=== PATIENT | male | born 1950 | race Caucasian/White ===

== ENCOUNTER 2019-02-27 09:57 | Inpatient (IN) | payer OTHER ==
[~2019-02-27] VITALS: Ht 182.9 cm; Wt 86.7 kg
--- NOTE | 2019-02-27 09:57 | NUR ---
ER Dr. GUIDRY at [facility] examining patient.
--- NOTE | 2019-02-27 10:00 | NUR ---
Patient to ER bed 01 to gown for evaluation. Side rails up.
--- NOTE | 2019-02-27 10:00 | NUR ---
patient arrived AOx4 from work with c/o diaphoresis and generalize weakness. patient states in broken kinyarwanda that he doesn't have any medical history and is followed by a primary care for normal wellness care. patient denies SOB, chest pain or any other complaint. no other complaint or injury at this time.
--- NOTE | 2019-02-27 10:00 | NUR ---
# 18 gauge angiocath placed to left forearm. Use of asceptic technique. Opsite placed over site. Blood return noted. Blood for lab drawn from site. Flushed with 10 cc of normal saline. No evidence of infiltration noted. Patient tolerated well.
[2019-02-27 10:06] VITALS: BP_SYST 152
[2019-02-27] MEDS ORDERED: NS 500 ML IV ONE (10:15)
[2019-02-27] MEDS ORDERED: INSULIN REGULAR, HUMAN 10 UNITS/0.1 ML INJ IVP ONE (10:15)
--- NOTE | 2019-02-27 10:20 | NUR ---
PATIENT LEFT TO RADIOLOGY VIA GURNEY. NO SIGNS OF DISTRESS NOTED.
[2019-02-27 10:33] LABS: BASOPHILS # (AUTO) 0.1 K/uL (0.0-0.2); EOSINOPHILS # (AUTO) 0.2 K/uL (0.0-0.4); EOSINOPHILS % (AUTO) 2.9 % (0.0-4.0); HEMATOCRIT 44.8 % (36-54); HEMOGLOBIN 14.8 g/dL (14.0-18.0); LYMPHOCYTES % (AUTO) 30.2 % (20.5-51.5); MEAN CORPUSCULAR HEMOGLOBIN 30 pg (27-31); MEAN CORPUSCULAR HGB CONC 33 % (32-36); MEAN CORPUSCULAR VOLUME 89 fL (79.0-98.0); MONOCYTES # (AUTO) 0.4 K/uL (0.0-1.0); MONOCYTES % (AUTO) 6.6 % (1.7-9.3); NEUTROPHILS # (AUTO) 3.9 K/uL (1.8-7.7); NEUTROPHILS % (AUTO) 59.3 % (40.0-70.0); PLATELET COUNT (AUTO) 220 K/uL (130-430); RED BLOOD CELL COUNT(AUTO) 5.03 MIL/uL (4.2-6.2); RED CELL DISTRIBUTION WIDTH 13.6 % (9.0-15.0); WHITE BLOOD COUNT (AUTO) 6.6 K/uL (4.8-10.8)
[2019-02-27 10:43] LABS: PROTHROMBIN TIME 9.9 SECS (9.5-12.5)
[2019-02-27 10:50] LABS: ALBUMIN 3.6 g/dL (3.4-4.8); CALCIUM 9.5 mg/dL (8.4-11.0); CREATININE 1.33 mg/dL (0.55-1.30); POTASSIUM 3.9 mmol/L (3.5-5.1); TOTAL BILIRUBIN 0.4 mg/dL (0.0-1.0)
[2019-02-27 13:16] LABS: BILIRUBIN,URINE NEGATIVE (NEGATIVE); BLOOD, URINE NEGATIVE (NEGATIVE); CLARITY/URINE CLEAR (CLEAR); COLOR,URINE YELLOW (YELLOW); GLUCOSE,URINE 3+ (NEGATIVE); KETONES,URINE NEGATIVE (NEGATIVE); LEUKOCYTE ESTERASE ,URINE NEGATIVE (NEGATIVE); NITRITE, URINE NEGATIVE (NEGATIVE); PH,URINE 5.5 (5.0-8.0); PROTEIN URINE NEGATIVE (NEGATIVE); UROBILINOGEN,URINE 0.2 (0.2-1.0)
--- NOTE | 2019-02-27 13:20 | NUR ---
MADE AWARE OF PATIENT'S BLOOD SUGAR
[2019-02-27 13:34] LABS: BACTERIA,URINE None Seen /HPF (None Seen); RBC,URINE 0-3 /HPF (0-3); WBC,URINE NONE SEEN /HPF (0-3)
--- NOTE | 2019-02-27 14:48 | NUR ---
Patient will be admitted to care of MD Wilian. Admitted to Telemetry unit. Will go to room 107-A. Belongings list completed. Summary report printed. Report will be given at bedside.
--- NOTE | 2019-02-27 14:58 | NUR ---
ADMIT NOTE Received pt from ER to the floor with a diagnosis of syncopal episode. Admission process initiated. patient oriented to pain management, safety and call light-teach back done.
[2019-02-27 15:05] VITALS: BP_SYST 159
--- NOTE | 2019-02-27 15:06 | NUR ---
CONSULTATION PAGED REASON FOR CONSULTATION:SYNCOPE WAS CONSULT CALLED?Y PERSON WHO WAS NOTIFIED:ROSI CONSULTING PHYSICIAN:DANNIELLE ROTHMAN ( PILE DRIVING SUPERVISOR) TELEVISION ACTOR SPECIALTY:NEURO TELEVISION ACTOR PHONE NUMBER:[phone] ORDERING PHYSICIAN:HIPOLITO MONTE
--- NOTE | 2019-02-27 15:15 | NUR ---
RN Note Patient was bib BLS for feeling weak at work. Patient report sitting down and then falling asleep. Does not report any medical conditions. Alert and oriented x 4. Mongolian speaking only. VSS: 98.1, 159/88, 60, 97%ra, 18. Currently running NS @ 80 on left hand 18g IV. Call light is within reach and bed is in low position. Will continue to monitor.
--- NOTE | 2019-02-27 15:28 | NUR ---
CONSULT CARDIOLOGY SYNCOPE DR FISHER [phone] S/W [facility] OFFICE
[2019-02-27] MEDS ORDERED: MUPIROCIN 2% TOPICAL OINTMENT 22 GM NS PRN (15:30)
[2019-02-27] MEDS ORDERED: POTASSIUM CHLORIDE 20 MEQ TAB.PRT.SR PO PRN (15:30)
[2019-02-27] MEDS ORDERED: DOCUSATE SODIUM 100 MG CAPSULE PO PRN (15:30)
[2019-02-27] MEDS ORDERED: ZOLPIDEM TARTRATE 5 MG TABLET PO PRN (15:30)
[2019-02-27] MEDS ORDERED: DEXTROSE 50% JECT 50 ML DISP.SYRIN IVP PRN (15:30)
[2019-02-27] MEDS ORDERED: MORPHINE 4 MG/ML INJ. SYRINGE IVP PRN ×2 (15:30)
[2019-02-27] MEDS ORDERED: ACETAMINOPHEN 325 MG TABLET PO PRN (15:30)
[2019-02-27] MEDS ORDERED: MAGNESIUM SULFATE 50 ML IV PRN (15:30)
[2019-02-27] MEDS ORDERED: ONDANSETRON HCL 4 MG/2 ML VIAL IVP PRN (15:30)
[2019-02-27] MEDS ORDERED: LORazepam 2 MG/ML VIAL IVP PRN (15:30)
[2019-02-27] MEDS: NACL 0.9% 1,000 ML IV SCH (16:11)
--- NOTE | 2019-02-27 17:00 | NUR ---
BS Current BS is 263, covered with 6 units of Preethi.
[2019-02-27] MEDS: INSULIN LISPRO SLIDING SCALE 100 UNITS/ML VIAL (humaLOG) SUBCUT PRN ×2 (17:31→21:38)
--- NOTE | 2019-02-27 18:11 | NUR ---
IV insertion Inserted 22g IV on the right hand using aseptic technique. Patient tolerated well.
--- NOTE | 2019-02-27 18:16 | NUR ---
Closing Note patient is currently having a 2d echo done. Patient continues to deny and CP, SOB, or dizziness. No signs of distress noted. Will endorse care to the oncoming nurse.
--- NOTE | 2019-02-27 19:05 | NUR ---
CHANGE OF SHIFT; pt. awake, alert, equatorial guinean speaking. Dr.. Pinzon here at bedside for consult, pt. was just admitted. denies any pain. instructed to call for help and use of call light .
[2019-02-27 20:00] VITALS: BP_SYST 149
--- NOTE | 2019-02-27 20:00 | NUR ---
NOTES: pt. resting, no complaints manifested, discuss plan of care. call light within reach. cardiac pattern on sinus bradycardia borderline sinus rhythm.
[2019-02-27] MEDS: HEPARIN SODIUM,PORCINE 5000 UNITS/ML VIAL SUBCUT SCH (20:48)
[2019-02-27] MEDS ORDERED: INSULIN GLARGINE 100 UNITS/ML 10 ML VIAL SUBCUT SCH (21:00)
--- NOTE | 2019-02-27 21:40 | NUR ---
NOTES: BS checked with sliding scale coverage, hs snack given. IV infusing with NS @ 80 cc/hr
--- NOTE | 2019-02-27 23:04 | NUR ---
NOTES: pt. sleeping already when checked. condition observed.
--- NOTE | 2019-02-28 00:35 | NUR ---
NOTES: been getting up to the restroom. c/o being cold ,warm blankets given.
[2019-02-28 01:20] VITALS: BP_SYST 142
--- NOTE | 2019-02-28 02:10 | NUR ---
NOTES: pt. called, got tangled up on her IV tubing and got twisted. medicated with [place] for c/o left leg pain and cramps and also her lower back which is chronic. pt. needs attended. continue to monitor. Addendum: 02/28/19 at 0223 by Kira Mae RN wrong pt.
--- NOTE | 2019-02-28 02:23 | NUR ---
NOTES: pt. remain sleeping. IVF patent cardiac pattern unchanged. continue to monitor.
[2019-02-28] MEDS: NACL 0.9% 1,000 ML IV SCH ×2 (04:12→16:38)
--- NOTE | 2019-02-28 04:32 | NUR ---
NOTES: IV bag changed, awakened and went back to sleep. continue to monitor.
--- NOTE | 2019-02-28 06:15 | NUR ---
NOTES: still sleeping comfortably. IVF patent and infusing well. lab draw pending this am.
[2019-02-28] MEDS: INSULIN LISPRO SLIDING SCALE 100 UNITS/ML VIAL (humaLOG) SUBCUT PRN ×4 (06:51→21:38)
[2019-02-28 06:52] LABS: CREATININE 0.99 mg/dL (0.55-1.30); THYROID STIMULATING HORMONE 0.91 uIu/mL (0.34-4.82)
--- NOTE | 2019-02-28 06:54 | NUR ---
CLOSING NOTES; pt. awakened, BS checked 226 with sliding scale coverage, no complaints noted. IVF patent. for further care and assistance, will endorse to day shift.
[2019-02-28 07:06] LABS: BASOPHILS # (AUTO) 0.1 K/uL (0.0-0.2); BASOPHILS % (AUTO) 0.7 % (0.0-2.0); EOSINOPHILS # (AUTO) 0.3 K/uL (0.0-0.4); EOSINOPHILS % (AUTO) 4.5 % (0.0-4.0); HEMATOCRIT 42.1 % (36-54); HEMOGLOBIN 14.2 g/dL (14.0-18.0); LYMPHOCYTES # (AUTO) 2.1 K/uL (1.0-5.5); LYMPHOCYTES % (AUTO) 29.2 % (20.5-51.5); MEAN CORPUSCULAR HEMOGLOBIN 30 pg (27-31); MEAN CORPUSCULAR HGB CONC 34 % (32-36); MEAN CORPUSCULAR VOLUME 89 fL (79.0-98.0); MONOCYTES # (AUTO) 0.5 K/uL (0.0-1.0); MONOCYTES % (AUTO) 6.8 % (1.7-9.3); NEUTROPHILS # (AUTO) 4.3 K/uL (1.8-7.7); NEUTROPHILS % (AUTO) 58.8 % (40.0-70.0); PLATELET COUNT (AUTO) 221 K/uL (130-430); RED BLOOD CELL COUNT(AUTO) 4.73 MIL/uL (4.2-6.2); RED CELL DISTRIBUTION WIDTH 13.5 % (9.0-15.0); WHITE BLOOD COUNT (AUTO) 7.3 K/uL (4.8-10.8)
--- NOTE | 2019-02-28 07:35 | NUR ---
OPENING NOTE Patient resting in the bed comfortable. No acute distress. AAO x 4. Denied of pain and dizziness. Skin warm and dry to touch. IV intact to right hand, no redness, no swelling, no drainage. On NS at 80ml/hr, infusing well. Discussed the safety issue, use call light when needs help, and plan of care, verbally understanding. Safety measure maintained. Bed locked in low position, side rails up. Refused bed alarm, risk and benefit explained, verbally understanding. Call light within reached. Will continue to monitor.
[2019-02-28 07:50] VITALS: BP_SYST 156
[2019-02-28] MEDS: HEPARIN SODIUM,PORCINE 5000 UNITS/ML VIAL SUBCUT SCH ×2 (08:16→20:33)
--- NOTE | 2019-02-28 08:44 | NUR ---
SEEN AND EXAMINED BY DR. SALGADO [facility] WITH ORDER.
--- NOTE | 2019-02-28 08:53 | NUR ---
2D ECHO DOING AT BEDSIDE AT THIS TIME.
[2019-02-28] MEDS: LISINOPRIL 10 MG TABLET (PRINIVIL) PO SCH (09:19)
[2019-02-28] MEDS ORDERED: ATORVASTATIN 20 MG TABLET PO ONE (10:15)
--- NOTE | 2019-02-28 11:54 | NUR ---
PZ=068 Humalog insulin 4 units given per sliding scale for OW=404 as ordered. No acut4e distress. Safety measure maintained. Bed locked in low position, side rails up. Call light within reached. Continue to monitor.
[2019-02-28 12:34] VITALS: BP_SYST 139
--- NOTE | 2019-02-28 13:53 | NUR ---
WATCHING TV Patient resting in the bed and watching TV. No acute distress. IV intact, IVF infusing well. Safety measure maintained. Bed locked in low position, side rails up. Call light within reached. Continue to monitor.
--- NOTE | 2019-02-28 15:40 | NUR ---
BATHROOM Ambulated to bathroom in steady gait. Safety measure maintained. Call light within reached. Continue to monitor.
[2019-02-28 16:47] VITALS: BP_SYST 139
[2019-02-28] MEDS: metFORMIN HCL 500 MG TABLET PO SCH (17:34)
--- NOTE | 2019-02-28 17:38 | NUR ---
MS=914 Humalog insulin 2 units given per sliding scale for ZR=475 as ordered. No acut4e distress. Safety measure maintained. Bed locked in low position, side rails up. Call light within reached. Continue to monitor.
--- NOTE | 2019-02-28 18:50 | NUR ---
CLOSING NOTE Patient resting in the bed comfortable. No acute distress. Denied of pain and dizziness. Skin warm and dry to touch. IV intact to right hand, no redness, no swelling, no drainage. On NS at 80ml/hr, infusing well. All needs met. Hourly rounding during shift. Safety measure maintained. Bed locked in low position, side rails up. Refused bed alarm, risk and benefit explained, verbally understanding. Call light within reached. Will endorse to night nurse.
--- NOTE | 2019-02-28 19:20 | NUR ---
CHANGE OF SHIFT; pt. awake, resting, watching tv. denies any discomfort. IVF infusing with NS @ 80 cc/hr. reminded to call nurse for help and use of call light .
[2019-02-28 20:15] VITALS: BP_SYST 150
--- NOTE | 2019-02-28 20:30 | NUR ---
NOTES: IVF patent, moves all extremities. cardiac pattern on sinus bradycardia. no chest pain nor any discomfort. some diabetic teaching regarding diet instructed with pt. and medication., verbalized understanding.
[2019-02-28] MEDS ORDERED: INSULIN GLARGINE 100 UNITS/ML 10 ML VIAL SUBCUT SCH (21:00)
--- NOTE | 2019-02-28 21:00 | NUR ---
NOTES: due meds given. repositioned self for comfort. BS checked 204. sliding scale to be given.
--- NOTE | 2019-02-28 22:00 | NUR ---
NOTES: Insulin schedule and sliding scale given and HS snack.
[2019-03-01 00:07] VITALS: BP_SYST 150
--- NOTE | 2019-03-01 00:30 | NUR ---
NOTES: pt. sleeping when checked, turn to sides by himself. continue to monitor.
--- NOTE | 2019-03-01 03:00 | NUR ---
NOTES: condition unchanged. pt. remain sleeping, no acute distress.
--- NOTE | 2019-03-01 05:30 | NUR ---
NOTES: pt. awakened, IV bag replaced. no complaints manifested.
[2019-03-01] MEDS: NACL 0.9% 1,000 ML IV SCH (05:39)
[2019-03-01 06:41] LABS: BASOPHILS # (AUTO) 0.1 K/uL (0.0-0.2); BASOPHILS % (AUTO) 0.9 % (0.0-2.0); EOSINOPHILS # (AUTO) 0.3 K/uL (0.0-0.4); EOSINOPHILS % (AUTO) 5.1 % (0.0-4.0); HEMATOCRIT 41.4 % (36-54); HEMOGLOBIN 14.1 g/dL (14.0-18.0); LYMPHOCYTES # (AUTO) 2.7 K/uL (1.0-5.5); MEAN CORPUSCULAR HEMOGLOBIN 30 pg (27-31); MEAN CORPUSCULAR HGB CONC 34 % (32-36); MEAN CORPUSCULAR VOLUME 88 fL (79.0-98.0); MONOCYTES # (AUTO) 0.5 K/uL (0.0-1.0); MONOCYTES % (AUTO) 7.9 % (1.7-9.3); NEUTROPHILS % (AUTO) 45.1 % (40.0-70.0); PLATELET COUNT (AUTO) 196 K/uL (130-430); RED CELL DISTRIBUTION WIDTH 13.7 % (9.0-15.0); WHITE BLOOD COUNT (AUTO) 6.7 K/uL (4.8-10.8)
[2019-03-01 06:44] LABS: CALCIUM 8.8 mg/dL (8.4-11.0); CREATININE 0.96 mg/dL (0.55-1.30)
--- NOTE | 2019-03-01 06:55 | NUR ---
CLOSING NOTES; pt. already awake, just resting in bed. BS checked 143, no sliding scale coverage. no distress, IVF patent. call light within reach.
--- NOTE | 2019-03-01 07:32 | NUR ---
OPENING NOTE Patient resting in the bed comfortable. No acute distress. AAO x 4. Denied of pain and dizziness. Skin warm and dry to touch. IV intact to right hand, no redness, no swelling, no drainage. On NS at 80ml/hr, infusing well. Discussed the safety issue, use call light when needs help, and plan of care, verbally understanding. Safety measure maintained. Call light within reached. Bed locked in low position, side rails up. Refused bed alarm, risk and benefit explained, verbally understanding. Will continue to monitor.
[2019-03-01 07:45] VITALS: BP_SYST 141
[2019-03-01] MEDS: LISINOPRIL 10 MG TABLET (PRINIVIL) PO SCH (08:27)
[2019-03-01] MEDS: metFORMIN HCL 500 MG TABLET PO SCH (08:27)
[2019-03-01] MEDS: HEPARIN SODIUM,PORCINE 5000 UNITS/ML VIAL SUBCUT SCH (08:31)
[2019-03-01] MEDS ORDERED: ATORVASTATIN 20 MG TABLET PO SCH (09:00)
--- NOTE | 2019-03-01 09:27 | NUR ---
AMBULATED IN THE HALLWAY IN STEADY GAIT.
--- NOTE | 2019-03-01 10:45 | NUR ---
SEEN AND EXAMINED BY DR. SALGADO [facility] WITH DISCHARGE ORDER.
[2019-03-01] MEDS ORDERED: GLU850 PO (10:56)
[2019-03-01] MEDS ORDERED: LIP20 PO (10:57)
[2019-03-01] MEDS ORDERED: SITA100T11 PO (10:57)
[2019-03-01] MEDS ORDERED: GLIP10TA11 PO (10:58)
[2019-03-01] MEDS ORDERED: LISI-600 PO (11:06)
[2019-03-01 12:00] VITALS: BP_SYST 137
--- NOTE | 2019-03-01 12:00 | NUR ---
DIABETIC TEACHING Diabetic teaching about food management given by operator specialist communications. Patient verbally understanding.
--- NOTE | 2019-03-01 12:15 | NUR ---
YP=616 No insulin coverage needed per sliding scale. Taught how to use blood sugar monitor, able to demonstrated back. Educated the s/s of hypoglycemia and carry hard candy all the time, verbally understanding.
[2019-03-01 12:40] VITALS: BP_SYST 138
[2019-03-01 13:01] VITALS: BP_SYST 138
--- NOTE | 2019-03-01 14:16 | NUR ---
D/C Patient Patient given medication reconciliation form and D/C instructions. Exit Care provided. Patient verbalized understanding. MD discussed with patient the results and treatment provided. Ambulatory with steady gait for discharge to home. Patient in stable condition, ID band removed. IV catheter removed, intact and dressing applied, no active bleeding. Rx of Metformin, Lipitor, Januvia, Glipizide, Lisinopril given. Patient educated on diabetes and hypertension management, follow up with primary physician in 1 week, verbally understanding. All belongings sent with patient.
--- NOTE | 2019-03-06 16:10 | NUR ---
Discharge Follow Up Phone Call INFORMATION SERVICES MANAGER phoned patient, . Patient stated he was doing fine. He went in to his clinic and was told to go back in three months. INFORMATION SERVICES MANAGER asked when patient's prescriptions would run out. He stated one would run out in 30 days. INFORMATION SERVICES MANAGER recommended phoning or going back in the next two weeks to request prescription refills. Patient did fill his prescriptions. INFORMATION SERVICES MANAGER asked patient if he would like more information on DM diet. He stated he would. INFORMATION SERVICES MANAGER notified Yee ALICEA by email that patient would like follow up. No other questions or concerns.
== END 2019-03-01 14:26 | disposition home or self-care (01) | DRG 682 ==
LOC: SED 09:57 → STU 14:36
PROVIDERS: ADMIT General Practice; ATTEND General Practice
DX: N17.0 Acute kidney failure with tubular necrosis (principal); E11.00 Type 2 diabetes mellitus with hyperosmolarity without nonketotic hyperglycemic-hyperosmolar coma (NKHHC); G90.8 Other disorders of autonomic nervous system; E86.0 Dehydration; E11.43 Type 2 diabetes mellitus with diabetic autonomic (poly)neuropathy; E11.65 Type 2 diabetes mellitus with hyperglycemia; I10 Essential (primary) hypertension; Z83.3 Family history of diabetes mellitus; Z87.891 Personal history of nicotine dependence; Z88.0 Allergy status to penicillin; Z86.73 Personal history of transient ischemic attack (TIA), and cerebral infarction without residual deficits; I25.2 Old myocardial infarction; E78.5 Hyperlipidemia, unspecified
CPT/HCPCS: 36415; 70450-TC; 71045; 80048; 80053; 80061; 81000-TC; 82962; 83036; 83735-TC; 84443-TC; 84484; 85025; 85610-TC; 85730-TC; 93005; 93306; 93880; 96374; 99285; G0378; J1644; J1815; J7030